=== PATIENT | female | born 1960 | race Caucasian/White ===

== ENCOUNTER 2022-01-20 16:30 | Inpatient (IN) | payer MEDICAID, OTHER ==
[~2022-01-20] VITALS: Ht 162.6 cm; Wt 60.0 kg
[2022-01-20] MEDS ORDERED: DEXTROSE 50%-WATER 25 GM/50 ML SYRINGE IVP ONE ×2 (16:45→19:30)
[2022-01-20] MEDS ORDERED: QUET100T PO (16:45)
[2022-01-20] MEDS ORDERED: HYDR-4808 PO (16:45)
[2022-01-20] MEDS ORDERED: GABA-1181 PO (16:45)
[2022-01-20] MEDS ORDERED: INSU100V9 SQ (16:45)
[2022-01-20] MEDS ORDERED: MIRT-89 PO (16:45)
[2022-01-20] MEDS ORDERED: INSU100V12 SQ (16:45)
[2022-01-20 17:01] LABS: BASOPHILS % (AUTO) 0.7 % (0.0-2.0); EOSINOPHILS % (AUTO) 2.2 % (1.0-6.0); HEMOGLOBIN 13.9 g/dL (12.0-16.0); LYMPHOCYTES # (AUTO) 2.8 K/uL (1.0-4.8); LYMPHOCYTES % (AUTO) 30.3 % (22.0-44.0); MEAN CORPUSCULAR HEMOGLOBIN 31.5 pg (26.0-34.0); MEAN CORPUSCULAR HGB CONC 33.2 G/dL (31.0-37.0); MEAN CORPUSCULAR VOLUME 95 fL (80-100); MONOCYTES % (AUTO) 10.9 % (2.0-9.0); NEUTROPHILS # (AUTO) 5.1 K/uL (1.8-7.7); NEUTROPHILS % (AUTO) 55.9 % (40.0-70.0); PLATELET COUNT (AUTO) 273 K/uL (150-450); RED BLOOD CELL COUNT(AUTO) 4.43 MIL/uL (4.00-5.20); RED CELL DISTRIBUTION WIDTH 14.5 % (11.5-14.5)
[2022-01-20 17:15] LABS: PROTHROMBIN TIME 10.7 SEC (9.4-11.6)
[2022-01-20] MEDS ORDERED: SODIUM CHLORIDE 0.9% 500 ML IV ONE (17:15)
[2022-01-20 17:18] LABS: AMMONIA 22 umol/L (11-32); LACTIC ACID 0.5 mmol/L (0.4-2.0)
[2022-01-20 18:07] LABS: ALANINE AMINOTRANSFERASE 100 U/L (12-78); ALKALINE PHOSPHATASE 166 U/L (46-116); ANION GAP 11 mmol/L (8-16); ASPARTATE AMINOTRANSFERASE 72 U/L (15-37); BILIRUBIN,TOTAL 0.4 mg/dL (0.1-1.0); CALCIUM, TOTAL 9.2 mg/dL (8.8-10.5); CARBON DIOXIDE 25 mmol/L (22-29); CHLORIDE 110 mmol/L (98-107); CREATINE KINASE, TOTAL ONLY 83 U/L (26-192); CREATININE 0.58 mg/dL (0.60-1.30); POTASSIUM 3.5 mmol/L (3.5-5.1); SODIUM SERUM 146 mmol/L (136-145); TOTAL PROTEIN, SERUM 7.5 g/dL (6.4-8.2); UREA NITROGEN, BLOOD 23 mg/dL (7-18)
[2022-01-20 18:09] LABS: GLOMERULAR FILTR. RATE CALC > 60 mL/min (>60); GLUCOSE,RANDOM 32 mg/dL (70-110)
[2022-01-20 18:46] LABS: APPEARANCE,URINE CLEAR (CLEAR); BILIRUBIN,URINE NEGATIVE (NEGATIVE); GLUCOSE, URINE (UA) 70-100 mg/dL (NEGATIVE); KETONES,URINE NEGATIVE (NEGATIVE); LEUKOCYTE ESTERASE ,URINE NEGATIVE (NEGATIVE); NITRATE,URINE NEGATIVE (NEGATIVE); OCCULT BLOOD,URINE NEGATIVE (NEGATIVE); PH,URINE 5.5 (5.0-8.0); PROTEIN,URINE NEGATIVE (NEGATIVE); SPECIFIC GRAVITIY, URINE 1.023 (1.003-1.030); UROBILINOGEN,URINE <=1.0 mg/dL (<=1.0)
[2022-01-20 18:53] LABS: AMPHET/METH SCREEN,URINE NEGATIVE (NEGATIVE); BARBITURATE SCREEN, URINE NEGATIVE (NEGATIVE); BENZODIAZEPINES SCREEN,URINE NEGATIVE (NEGATIVE); CANNABINOID SCREEN,URINE POSITIVE (NEGATIVE); COCAINE SCREEN,URINE NEGATIVE (NEGATIVE); METHADONE SCREEN, URINE NEGATIVE (NEGATIVE); OPIATE SCREEN,URINE POSITIVE (NEGATIVE); PHENCYCLIDINE SCREEN,URINE NEGATIVE (NEGATIVE)
[2022-01-20 18:58] LABS: BACTERIA,URINE None Seen /HPF (None Seen); RBC,URINE None Seen /HPF (0-2); WBC,URINE 0-2 /HPF (0-5)
[2022-01-20] MEDS ORDERED: DEXTROSE 5%-0.45% SODIUM CHL 1,000 ML IV ONE (19:30)
[2022-01-20] MEDS ORDERED: BISACODYL 10 MG RECTAL RECTAL SUPPOSITORY PR PRN (21:15)
[2022-01-20] MEDS ORDERED: ONDANSETRON HCL 4 MG/2 ML VIAL IVP PRN (21:15)
[2022-01-20] MEDS ORDERED: MAGNESIUM HYDROXIDE SUSPENSION 30 ML UDCUP PO PRN (21:15)
[2022-01-20] MEDS: ACETAMINOPHEN 325 MG TABLET PO PRN (23:37)
[2022-01-21] MEDS: ZOLPIDEM TARTRATE 5 MG TABLET PO PRN (00:13)
[2022-01-21] MEDS: HEPARIN SODIUM,PORCINE 5,000 UNITS/ML VIAL SQ SCH ×3 (00:13→16:00)
[2022-01-21] MEDS: LORazepam 1 MG TABLET PO PRN ×2 (01:09→06:59)
[2022-01-21 02:05] VITALS: BP 135/83
[2022-01-21 02:21] LABS: COVID AG,FIA SOURCE NASAL SWAB
[2022-01-21 06:49] LABS: BASOPHILS % (AUTO) 1.2 % (0.0-2.0); EOSINOPHILS % (AUTO) 2.8 % (1.0-6.0); HEMATOCRIT 35.9 % (36-46); LYMPHOCYTES # (AUTO) 1.4 K/uL (1.0-4.8); LYMPHOCYTES % (AUTO) 29.1 % (22.0-44.0); MEAN CORPUSCULAR HGB CONC 33.4 G/dL (31.0-37.0); MEAN CORPUSCULAR VOLUME 96 fL (80-100); MONOCYTES # (AUTO) 0.6 K/uL (0.1-1.0); NEUTROPHILS # (AUTO) 2.6 K/uL (1.8-7.7); NEUTROPHILS % (AUTO) 54.9 % (40.0-70.0); PLATELET COUNT (AUTO) 195 K/uL (150-450); RED BLOOD CELL COUNT(AUTO) 3.75 MIL/uL (4.00-5.20); RED CELL DISTRIBUTION WIDTH 14.8 % (11.5-14.5)
[2022-01-21 06:56] LABS: GLUCOMETER DEV NAME(LOC) 5N.1C; GLUCOSE,POINT OF CARE 385 MG/DL (70-110)
[2022-01-21 06:59] LABS: ANION GAP 9 mmol/L (8-16); CALCIUM, TOTAL 8.3 mg/dL (8.8-10.5); CARBON DIOXIDE 23 mmol/L (22-29); CHLORIDE 105 mmol/L (98-107); CREATININE 0.87 mg/dL (0.60-1.30); GLUCOSE,RANDOM 399 mg/dL (70-110); POTASSIUM 4.2 mmol/L (3.5-5.1); SODIUM SERUM 137 mmol/L (136-145); UREA NITROGEN, BLOOD 20 mg/dL (7-18)
[2022-01-21 07:05] LABS: GLOMERULAR FILTR. RATE CALC > 60 mL/min (>60)
[2022-01-21 07:06] LABS: GLUCOMETER DEV NAME(LOC) 5S.1B; GLUCOSE,POINT OF CARE 331 MG/DL (70-110)
[2022-01-21 07:35] VITALS: BP 152/95
[2022-01-21] MEDS: PANTOPRAZOLE SODIUM 40 MG DR TABLET PO SCH (08:59)
[2022-01-21] MEDS: DOCUSATE SODIUM 100 MG CAPSULE PO SCH ×2 (08:59→20:55)
[2022-01-21] MEDS ORDERED: QUEtiapine FUMARATE 100 MG TABLET PO SCH (09:00)
[2022-01-21] MEDS: HYDROCODONE/ACETAMINOPHEN 5-325 MG TABLET PO PRN ×2 (10:17→19:06)
[2022-01-21 11:38] VITALS: BP 140/93
[2022-01-21 12:26] LABS: GLUCOMETER DEV NAME(LOC) 5N.3; GLUCOSE,POINT OF CARE 263 MG/DL (70-110)
[2022-01-21] MEDS ORDERED: DEXTROSE 50%-WATER 25 GM/50 ML SYRINGE IVP PRN (14:00)
[2022-01-21 15:38] VITALS: BP 161/98
[2022-01-21] MEDS: INSULIN LISPRO 100 UNITS/ML SQ PRN ×2 (19:06→20:46)
[2022-01-21 19:33] VITALS: BP 149/96
[2022-01-21] MEDS: MIRTAZAPINE 15 MG TABLET PO SCH (20:54)
[2022-01-21] MEDS: QUEtiapine FUMARATE 100 MG TABLET PO SCH (20:55)
[2022-01-21] MEDS: MORPHINE SULFATE 2 MG/ML SYRINGE IVP PRN (22:13)
[2022-01-22] MEDS: HEPARIN SODIUM,PORCINE 5,000 UNITS/ML VIAL SQ SCH ×4 (00:16→23:22)
[2022-01-22] MEDS: ZOLPIDEM TARTRATE 5 MG TABLET PO PRN (00:16)
[2022-01-22 00:25] VITALS: BP 119/80
[2022-01-22 03:56] LABS: GLUCOMETER DEV NAME(LOC) 5N.1C; GLUCOSE,POINT OF CARE 196 MG/DL (70-110)
[2022-01-22 03:56] LABS: GLUCOMETER DEV NAME(LOC) 5N.1C; GLUCOSE,POINT OF CARE 244 MG/DL (70-110)
[2022-01-22 04:55] VITALS: BP 109/79
[2022-01-22] MEDS: INSULIN LISPRO 100 UNITS/ML SQ PRN ×4 (06:34→20:44)
[2022-01-22] MEDS: LORazepam 1 MG TABLET PO PRN (06:35)
[2022-01-22] MEDS: ACETAMINOPHEN 325 MG TABLET PO PRN (06:39)
[2022-01-22 06:43] LABS: BASOPHILS % (AUTO) 0.9 % (0.0-2.0); EOSINOPHILS % (AUTO) 3.7 % (1.0-6.0); HEMATOCRIT 39.6 % (36-46); HEMOGLOBIN 13.2 g/dL (12.0-16.0); LYMPHOCYTES # (AUTO) 1.6 K/uL (1.0-4.8); LYMPHOCYTES % (AUTO) 32.3 % (22.0-44.0); MEAN CORPUSCULAR HEMOGLOBIN 31.7 pg (26.0-34.0); MEAN CORPUSCULAR HGB CONC 33.3 G/dL (31.0-37.0); MEAN CORPUSCULAR VOLUME 95 fL (80-100); MONOCYTES # (AUTO) 0.6 K/uL (0.1-1.0); MONOCYTES % (AUTO) 13.1 % (2.0-9.0); NEUTROPHILS # (AUTO) 2.4 K/uL (1.8-7.7); PLATELET COUNT (AUTO) 190 K/uL (150-450); RED BLOOD CELL COUNT(AUTO) 4.17 MIL/uL (4.00-5.20); RED CELL DISTRIBUTION WIDTH 14.7 % (11.5-14.5)
[2022-01-22 06:46] LABS: ANION GAP 7 mmol/L (8-16); CALCIUM, TOTAL 8.6 mg/dL (8.8-10.5); CARBON DIOXIDE 25 mmol/L (22-29); CHLORIDE 106 mmol/L (98-107); CREATININE 0.67 mg/dL (0.60-1.30); GLUCOSE,RANDOM 245 mg/dL (70-110); POTASSIUM 4.4 mmol/L (3.5-5.1); SODIUM SERUM 138 mmol/L (136-145); UREA NITROGEN, BLOOD 14 mg/dL (7-18)
[2022-01-22 06:55] LABS: GLOMERULAR FILTR. RATE CALC > 60 mL/min (>60)
[2022-01-22] MEDS: PANTOPRAZOLE SODIUM 40 MG DR TABLET PO SCH (07:37)
[2022-01-22] MEDS: DOCUSATE SODIUM 100 MG CAPSULE PO SCH ×2 (07:37→20:37)
[2022-01-22] MEDS: HYDROCODONE/ACETAMINOPHEN 5-325 MG TABLET PO PRN (07:38)
[2022-01-22 07:55] VITALS: BP 157/88
[2022-01-22] MEDS: QUEtiapine FUMARATE 100 MG TABLET PO SCH ×3 (07:58→20:37)
[2022-01-22 10:50] VITALS: BP 119/81
[2022-01-22 11:41] LABS: GLUCOMETER DEV NAME(LOC) 5N.3; GLUCOSE,POINT OF CARE 220 MG/DL (70-110)
[2022-01-22] MEDS: MORPHINE SULFATE 2 MG/ML SYRINGE IVP PRN (12:20)
[2022-01-22] MEDS: NICOTINE 14 MG/24 HOUR PATCH TD SCH (12:30)
[2022-01-22 15:13] VITALS: BP 108/74
[2022-01-22] MEDS: MetFORMIN HCL 500 MG TABLET PO SCH (17:05)
[2022-01-22] MEDS ORDERED: GlipiZIDE 5 MG TABLET PO SCH (17:30)
[2022-01-22] MEDS ORDERED: MetFORMIN HCL 500 MG TABLET PO SCH (18:00)
[2022-01-22 19:26] VITALS: BP 105/71
[2022-01-22 20:16] LABS: GLUCOMETER DEV NAME(LOC) 5N.1C; GLUCOSE,POINT OF CARE 304 MG/DL (70-110)
[2022-01-22 20:17] LABS: GLUCOMETER DEV NAME(LOC) 5N.1C; GLUCOSE,POINT OF CARE 286 MG/DL (70-110)
[2022-01-22] MEDS: MIRTAZAPINE 15 MG TABLET PO SCH (20:37)
[2022-01-23 00:24] VITALS: BP 118/82
[2022-01-23 04:30] VITALS: BP 118/86
[2022-01-23] MEDS: INSULIN LISPRO 100 UNITS/ML SQ PRN ×4 (06:06→20:29)
[2022-01-23] MEDS: HYDROCODONE/ACETAMINOPHEN 5-325 MG TABLET PO PRN ×4 (06:22→22:13)
[2022-01-23 06:38] LABS: BASOPHILS % (AUTO) 1.1 % (0.0-2.0); EOSINOPHILS % (AUTO) 4.2 % (1.0-6.0); HEMATOCRIT 40.7 % (36-46); HEMOGLOBIN 13.8 g/dL (12.0-16.0); LYMPHOCYTES # (AUTO) 1.8 K/uL (1.0-4.8); LYMPHOCYTES % (AUTO) 33.4 % (22.0-44.0); MEAN CORPUSCULAR HEMOGLOBIN 31.9 pg (26.0-34.0); MEAN CORPUSCULAR HGB CONC 33.9 G/dL (31.0-37.0); MEAN CORPUSCULAR VOLUME 94 fL (80-100); MONOCYTES # (AUTO) 0.6 K/uL (0.1-1.0); MONOCYTES % (AUTO) 11.6 % (2.0-9.0); NEUTROPHILS # (AUTO) 2.7 K/uL (1.8-7.7); NEUTROPHILS % (AUTO) 49.7 % (40.0-70.0); PLATELET COUNT (AUTO) 209 K/uL (150-450); RED BLOOD CELL COUNT(AUTO) 4.31 MIL/uL (4.00-5.20)
[2022-01-23 06:43] LABS: ANION GAP 7 mmol/L (8-16); CALCIUM, TOTAL 9.1 mg/dL (8.8-10.5); CARBON DIOXIDE 26 mmol/L (22-29); CHLORIDE 106 mmol/L (98-107); CREATININE 0.63 mg/dL (0.60-1.30); GLUCOSE,RANDOM 198 mg/dL (70-110); POTASSIUM 4.4 mmol/L (3.5-5.1); SODIUM SERUM 139 mmol/L (136-145); UREA NITROGEN, BLOOD 17 mg/dL (7-18)
[2022-01-23 06:45] LABS: GLOMERULAR FILTR. RATE CALC > 60 mL/min (>60)
[2022-01-23 07:19] VITALS: BP 121/85
[2022-01-23] MEDS: NICOTINE 14 MG/24 HOUR PATCH TD SCH (07:47)
[2022-01-23] MEDS: DOCUSATE SODIUM 100 MG CAPSULE PO SCH ×2 (07:53→20:28)
[2022-01-23] MEDS: PANTOPRAZOLE SODIUM 40 MG DR TABLET PO SCH (07:53)
[2022-01-23] MEDS: MetFORMIN HCL 500 MG TABLET PO SCH ×2 (07:54→17:19)
[2022-01-23] MEDS: HEPARIN SODIUM,PORCINE 5,000 UNITS/ML VIAL SQ SCH ×3 (07:54→23:21)
[2022-01-23] MEDS: QUEtiapine FUMARATE 100 MG TABLET PO SCH ×3 (08:01→20:28)
[2022-01-23] MEDS: LORazepam 1 MG TABLET PO PRN (08:04)
[2022-01-23 11:34] VITALS: BP 109/75
[2022-01-23] MEDS: INSULIN GLARGINE,HUM.REC.ANLOG 100 UNITS/ML SQ SCH (12:06)
[2022-01-23 16:25] VITALS: BP 141/92
[2022-01-23 19:22] VITALS: BP 112/82
[2022-01-23 19:41] LABS: GLUCOMETER DEV NAME(LOC) 5S.1B; GLUCOSE,POINT OF CARE 309 MG/DL (70-110)
[2022-01-23 19:42] LABS: GLUCOMETER DEV NAME(LOC) 5N.1C; GLUCOSE,POINT OF CARE 418 MG/DL (70-110)
[2022-01-23 19:42] LABS: GLUCOMETER DEV NAME(LOC) 5N.1C; GLUCOSE,POINT OF CARE 382 MG/DL (70-110)
[2022-01-23 19:42] LABS: GLUCOMETER DEV NAME(LOC) 5N.1C; GLUCOSE,POINT OF CARE 204 MG/DL (70-110)
[2022-01-23 19:42] LABS: GLUCOMETER DEV NAME(LOC) 5N.1C; GLUCOSE,POINT OF CARE 346 MG/DL (70-110)
[2022-01-23] MEDS: MIRTAZAPINE 15 MG TABLET PO SCH (20:28)
[2022-01-24 00:08] VITALS: BP 106/76
[2022-01-24] MEDS: LORazepam 1 MG TABLET PO PRN ×2 (01:14→11:12)
[2022-01-24 01:32] LABS: GLUCOMETER DEV NAME(LOC) 5S.1B; GLUCOSE,POINT OF CARE 149 MG/DL (70-110)
[2022-01-24] MEDS: HYDROCODONE/ACETAMINOPHEN 5-325 MG TABLET PO PRN ×4 (03:05→20:21)
[2022-01-24] MEDS: INSULIN LISPRO 100 UNITS/ML SQ PRN ×2 (06:23→12:37)
[2022-01-24 07:07] VITALS: BP 100/66
[2022-01-24] MEDS: QUEtiapine FUMARATE 100 MG TABLET PO SCH ×3 (08:02→20:21)
[2022-01-24] MEDS: MetFORMIN HCL 500 MG TABLET PO SCH ×2 (08:03→16:44)
[2022-01-24] MEDS: PANTOPRAZOLE SODIUM 40 MG DR TABLET PO SCH (08:03)
[2022-01-24] MEDS: DOCUSATE SODIUM 100 MG CAPSULE PO SCH ×2 (08:03→20:21)
[2022-01-24] MEDS: NICOTINE 14 MG/24 HOUR PATCH TD SCH (08:07)
[2022-01-24] MEDS: HEPARIN SODIUM,PORCINE 5,000 UNITS/ML VIAL SQ SCH ×2 (08:07→16:50)
[2022-01-24] MEDS: INSULIN GLARGINE,HUM.REC.ANLOG 100 UNITS/ML SQ SCH (08:09)
[2022-01-24 11:21] VITALS: BP 123/86
[2022-01-24 11:41] LABS: GLUCOMETER DEV NAME(LOC) 5S.2B; GLUCOSE,POINT OF CARE 228 MG/DL (70-110)
[2022-01-24 15:37] VITALS: BP 112/82
[2022-01-24] MEDS ORDERED: METF-1211 PO (17:14)
[2022-01-24] MEDS ORDERED: INSLAN SQ (17:15)
[2022-01-24 18:01] LABS: GLUCOMETER DEV NAME(LOC) 5N.3; GLUCOSE,POINT OF CARE 207 MG/DL (70-110)
[2022-01-24] MEDS: MIRTAZAPINE 15 MG TABLET PO SCH (20:21)
== END 2022-01-24 20:35 | disposition home or self-care (01) | DRG 420 ==
LOC: EMS 16:39 → 5S 01-21 00:06
PROVIDERS: ADMIT Internal Medicine; ATTEND Internal Medicine
DX: E11.649 Type 2 diabetes mellitus with hypoglycemia without coma (principal); G93.41 Metabolic encephalopathy; E87.0 Hyperosmolality and hypernatremia; E11.40 Type 2 diabetes mellitus with diabetic neuropathy, unspecified; F25.1 Schizoaffective disorder, depressive type; F03.90 Unspecified dementia, unspecified severity, without behavioral disturbance, psychotic disturbance, mood disturbance, and anxiety; F41.1 Generalized anxiety disorder; Z20.822 Contact with and (suspected) exposure to COVID-19; J44.9 Chronic obstructive pulmonary disease, unspecified; Z79.899 Other long term (current) drug therapy; Z79.4 Long term (current) use of insulin
CPT/HCPCS: 51702; 70450; 71045; 80048; 80053; 81001; 82140; 82550; 82948; 82962; 83036; 83605; 84484; 85025; 85610; 85730; 87040; 93005; 99285; J1644; J1815; J2270; J7040; 36415-L1; 36415-TC